=== PATIENT | female | born 1990 | race Caucasian/White ===

== ENCOUNTER → 2020-08-07 08:53 | Outpatient (BNVA) | payer OTHER, SELFPAY | PROVIDERS: PCP Internal Medicine; Visit Provider Advanced Practice Midwife ==

== ENCOUNTER 2020-08-09 15:19 | Outpatient (REF) | payer OTHER, SELFPAY ==
--- NOTE | 2020-08-09 15:27 | US_ITS ---
EXAMINATION: ULTRASOUND OF THE PELVIS CLINICAL INFORMATION: Abnormal uterine and vaginal bleeding.. COMPARISON: None. TECHNIQUE: Transabdominal and transvaginal pelvic ultrasound. A transvaginal study was performed in addition to the transabdominal study which did not yield an adequate examination of the uterus and ovaries due to superimposed distended gas-filled loops of bowel. FINDINGS: The uterus is normal in size and appearance, measuring 9.7 x 4.2 x 6 cm longitudinally, anteroposteriorly and transversely. The endometrial stripe thickness is prominent, measuring 1.5 cm in thickness. There are heterogeneous hypoechoic filling defects within the endometrial cavity. No Doppler vascularity. The endometrial cavity is expanded by 1.6 cm. No focal myometrial mass is seen. The ovaries bilaterally are visualized and appear normal, with the right ovary measuring 3.8 x 2.9 x 3 cm and the left ovary measuring 4.4 x 2.5 x 2 cm. Trace pelvic free fluid. US/US pelvic complete IMPRESSION: Heterogeneous filling defect within the endometrial cavity suggestive of blood clots. No uterine mass identified. Thickened appearance of the endometrium is nonspecific and can vary based on the phase of cycle.
--- NOTE | 2020-08-09 15:27 | US_ITS ---
EXAMINATION: ULTRASOUND OF THE PELVIS CLINICAL INFORMATION: Abnormal uterine and vaginal bleeding.. COMPARISON: None. TECHNIQUE: Transabdominal and transvaginal pelvic ultrasound. A transvaginal study was performed in addition to the transabdominal study which did not yield an adequate examination of the uterus and ovaries due to superimposed distended gas-filled loops of bowel. FINDINGS: The uterus is normal in size and appearance, measuring 9.7 x 4.2 x 6 cm longitudinally, anteroposteriorly and transversely. The endometrial stripe thickness is prominent, measuring 1.5 cm in thickness. There are heterogeneous hypoechoic filling defects within the endometrial cavity. No Doppler vascularity. The endometrial cavity is expanded by 1.6 cm. No focal myometrial mass is seen. The ovaries bilaterally are visualized and appear normal, with the right ovary measuring 3.8 x 2.9 x 3 cm and the left ovary measuring 4.4 x 2.5 x 2 cm. Trace pelvic free fluid. US/US transvaginal IMPRESSION: Heterogeneous filling defect within the endometrial cavity suggestive of blood clots. No uterine mass identified. Thickened appearance of the endometrium is nonspecific and can vary based on the phase of cycle.
== END 2020-08-09 15:20 | disposition home or self-care (01) ==
LOC: HO.US 15:19
PROVIDERS: Visit Provider Advanced Practice Midwife
DX: N93.9 Abnormal uterine and vaginal bleeding, unspecified (principal)
CPT/HCPCS: 76830; 76856

== ENCOUNTER → 2020-08-15 16:05 | Outpatient (BNVA) | payer OTHER, SELFPAY | PROVIDERS: PCP Internal Medicine; Visit Provider Advanced Practice Midwife ==

== ENCOUNTER 2020-08-16 14:04 | Outpatient (REF) | payer OTHER, SELFPAY ==
[2020-08-16 15:04] LABS: Hematocrit 33.1 % (37-47); Hemoglobin 10.5 g/dl (12.0-16.0); Mean Corpuscular HGB Conc 31.7 g/dl (31.0-35.0); Mean Corpuscular Hemoglobin 29.1 pg (27.0-33.0); Mean Corpuscular Volume 91.7 fL (80-98); Mean Platelet Volume 10.9 fL (9.4-12.3); Platelet Count 286 X10*3/uL (160-400); Red Blood Count 3.61 X10*6/uL (4.20-5.50); Red Cell Distribution Width 13.5 % (11.0-16.0); White Blood Count 6.5 X10*3/uL (4.8-10.8)
[2020-08-16 15:54] LABS: TSH reflex Free T4 1.46 uIU/mL (0.32-4.0)
== END 2020-08-16 14:05 | disposition home or self-care (01) ==
LOC: HO.LAB 14:04
PROVIDERS: PCP Internal Medicine; Visit Provider Advanced Practice Midwife
DX: N93.9 Abnormal uterine and vaginal bleeding, unspecified (principal)
CPT/HCPCS: 36415; 84443; 85027

== ENCOUNTER 2020-08-22 08:25 | Outpatient (REF) | payer OTHER, SELFPAY ==
[2020-08-23 12:47] LABS: C. trachomatis RNA TMA NOT DETECTED (NOT DETECTED); N. gonorrhoeae RNA TMA NOT DETECTED (NOT DETECTED)
== END 2020-08-22 08:26 | disposition home or self-care (01) ==
LOC: HO.LAB 08:25
PROVIDERS: Visit Provider Obstetrics & Gynecology
DX: N93.9 Abnormal uterine and vaginal bleeding, unspecified (principal); F41.8 Other specified anxiety disorders; J45.909 Unspecified asthma, uncomplicated; F17.210 Nicotine dependence, cigarettes, uncomplicated
CPT/HCPCS: 36415; 87491; 87591; 99212

== ENCOUNTER 2020-11-26 14:13 | Outpatient (REF) | payer OTHER, SELFPAY ==
[2020-11-26 15:20] LABS: Hematocrit 38.5 % (37-47); Hemoglobin 11.9 g/dl (12.0-16.0); Mean Corpuscular HGB Conc 30.9 g/dl (31.0-35.0); Mean Corpuscular Hemoglobin 25.5 pg (27.0-33.0); Mean Corpuscular Volume 82.4 fL (80-98); Mean Platelet Volume 10.7 fL (9.4-12.3); Platelet Count 287 X10*3/uL (160-400); Red Blood Count 4.67 X10*6/uL (4.20-5.50); Red Cell Distribution Width 18.5 % (11.0-16.0); White Blood Count 6.5 X10*3/uL (4.8-10.8)
[2020-11-27 05:47] LABS: CT PCR NOT DETECTED (Not Detect.); NG PCR NOT DETECTED (Not Detect.)
== END 2020-11-26 14:14 | disposition home or self-care (01) ==
LOC: HO.LAB 14:13
PROVIDERS: Visit Provider Obstetrics & Gynecology
DX: N93.9 Abnormal uterine and vaginal bleeding, unspecified (principal)
CPT/HCPCS: 85027; 87491; 87591; 99212

== ENCOUNTER 2022-05-21 11:45 | Emergency (ER) | payer OTHER, SELFPAY ==
--- NOTE | ~2022-05-21 | XR_ITS ---
EXAMINATION: XR CHEST CLINICAL INFORMATION: Cough COMPARISON: Previous chest x-ray December 2015 TECHNIQUE: Frontal view of the chest was obtained. FINDINGS: No significant abnormality is noted involving the heart, lungs, mediastinum, bony thorax or soft tissues. XR/XR chest 1V IMPRESSION: Unremarkable examination.
[2022-05-21 11:47] VITALS: BP 151/82; PULSE 97; RESP 20; TEMP 36.8; O2SAT 91; BMI 26.8
--- NOTE | 2022-05-21 11:55 | ED_ITS ---
HPI - URI/Sore Throat General Chief Complaint: Upper Respiratory Symptoms <SID Abrams - Last Filed: 05/26/22 15:25> Stated Complaint: Asthma Cough <SID Abrams - Last Filed: 05/26/22 15:25> Time Seen by Provider: 05/21/22 12:05 <SID Abrams - Last Filed: 05/26/22 15:25> History of Present Illness HPI Narrative: Patient complains of asthma which is temporary relieved with her pump but then comes right back and now she is coughing a lot which happens often when she has an asthma flare up she has no sputum no fever no chest pain No recent illness that she is aware of no runny nose no sore throat no body aches no fever <SID Zeng - Last Filed: 05/21/22 18:32> Related Data Home Medications: Home Medications Medication Instructions Recorded Confirmed lorazepam 2 mg/mL oral concentrate 0.25 mg PO BID PRN 08/22/20 08/22/20 paroxetine HCl 10 mg tablet (Paxil) 10 mg PO DAILY 08/22/20 08/22/20 zolpidem 10 mg tablet (Ambien) 10 mg PO BEDTIME PRN 08/22/20 08/22/20 Previous Rx's Medication Instructions Recorded ibuprofen 600 mg tablet 600 mg PO TID PRN menorrhagia 10 08/15/20 days #30 tabs ferrous sulfate 325 mg (65 mg 325 mg PO Q OTHER DAY #30 tabs 08/17/20 iron) tablet L norgest/E estradiol-E estrad 1 tab PO DAILY 84 days #84 ea 11/26/20 0.15 mg-30 mcg (84)/10 mcg(7) tabs,3mos (Seasonique) albuterol sulfate 2.5 mg/3 mL 2.5 mg (3 mL) inhalation Q4-6H PRN 05/21/22 (0.083 %) solution for nebulization shortness of breath or wheezing #75 mL codeine 10 mg-guaifenesin 100 mg/5 5 ml PO Q6H PRN cough #75 mL 05/21/22 mL oral liquid (Guaifenesin AC) prednisone 20 mg tablet 60 mg PO DAILY 5 days #15 tabs 05/21/22 <SID Abrams - Last Filed: 05/26/22 15:25> Allergies/Adverse Reactions: Allergies Allergy/AdvReac Type Severity Reaction Status Date / Time No Known Allergies Allergy Verified 05/21/22 11:50 <SID Abrams - Last Filed: 05/26/22 15:25> Review of Systems Review of Systems: Positive for shortness of breath and cough Negatives no fever no chills no dizziness no headache no stiff neck no chest pain no sputum no abdominal pain no nausea vomiting or diarrhea no skin rash no leg swelling no calf pain <SID Zeng - Last Filed: 05/21/22 18:32> Yes all other systems are reviewed and are negative <SID Zeng - Last Filed: 05/21/22 18:32> PMFSH Past Medical History Medical History: Medical History Anxiety Asthma Depression <SID Abrams - Last Filed: 05/26/22 15:25> Surgical History: Surgical History No history of previous surgery <SID Abrams - Last Filed: 05/26/22 15:25> Family History Family History: Family History Maternal Aunt Breast CA <SID Abrams - Last Filed: 05/26/22 15:25> Social History Social History: Social History Alcohol intake: current Alcohol intake frequency: holidays/special occasions only Cigarettes Per Day: 6 Advance Directives: No Gender identity: Female <SID Abrams - Last Filed: 05/26/22 15:25> Physical Exam Vital Signs: Vital Signs: Last Vital Signs Temp 98.2 F 05/21/22 11:47 Pulse 97 05/21/22 12:14 Resp 18 05/21/22 12:14 BP 151/82 H 05/21/22 11:47 Pulse Ox 91 L 05/21/22 11:47 O2 Del Method 05/21/22 11:47 BMI result Body Mass Index 26.8 <SID Abrams - Last Filed: 05/26/22 15:25> Vital Signs: Last Vital Signs Temp 98.2 F 05/21/22 11:47 Pulse 97 05/21/22 12:14 Resp 18 05/21/22 12:14 BP 151/82 H 05/21/22 11:47 Pulse Ox 91 L 05/21/22 11:47 O2 Del Method 05/21/22 11:47 BMI result Body Mass Index 26.8 <SID Zeng - Last Filed: 05/21/22 18:32> General appearance is no acute distress, but coughing a lot The eyes no redness no discharge The pharynx is clear without redness swelling or exudate Neck is supple Chest is clear to auscultation with full symmetric equal breath sounds, this was after the patient had received a nebulizer treatment ordered in triage, at this time there is no wheezing, no prolonged expiration no adventitious sounds Heart no murmur Abdomen soft nontender Extremities no edema no calf tenderness or swelling Skin no rash <SID Zeng - Last Filed: 05/21/22 18:32> Course Course Course Narrative: Patient O2 saturation 91% on room air. Patient lungs are tight. Patient sent to [facility] immediately for asthma exacerbation. Chest x-ray and covid swab ordered. albuterol and prednisone ordered <SID Abrams - Last Filed: 05/26/22 15:25> Patient O2 saturation 91% on room air. Patient lungs are tight. Patient sent to [facility] immediately for asthma exacerbation. Chest x-ray and covid swab ordered. albuterol and prednisone ordered This patient was treated with a nebulizer before I saw her when I saw her her lungs were now clear but she was still coughing a lot She was given a tbsp of codeine cough syrup, which was helpful to her in about 10-15 minutes later her cough was under control, I did re-evaluate her her lungs were clear her O2 sat was 98% she was breathing at 16 times a minute and felt much better with out the frequent cough Chest x-ray was negative, COVID test was negative and patient was discharged on steroids and refill of her albuterol, she was comfortable speaking full s entences with no shortness of breath <SID Zeng - Last Filed: 05/21/22 18:32> Medications Administered Discontinued Medications Generic Name Dose Route Start Last Admin Trade Name Julio C PRN Reason Stop Dose Admin Albuterol/Ipratropium 3 ml 05/21/22 11:54 05/21/22 12:13 Albuterol/Iprat 2.5/0.5mg 3 Ml Ampul.Neb INHALE 05/21/22 11:55 3 ml ONCE ONE Administration Guaifenesin/Codeine Phosphate 5 ml 05/21/22 12:23 05/21/22 12:29 Guaifen/Codeine Sf 200/20/10ml 10 Ml Liquid PO 05/21/22 12:24 5 ml ONCE ONE Administration Prednisone 60 mg 05/21/22 11:54 05/21/22 12:25 Prednisone 20 Mg Tablet PO 05/21/22 11:55 60 mg ONCE ONE Administration <SID Abrams - Last Filed: 05/26/22 15:25> Medications Administered Discontinued Medications Generic Name Dose Route Start Last Admin Trade Name Julio C PRN Reason Stop Dose Admin Albuterol/Ipratropium 3 ml 05/21/22 11:54 05/21/22 12:13 Albuterol/Iprat 2.5/0.5mg 3 Ml Ampul.Neb INHALE 05/21/22 11:55 3 ml ONCE ONE Administration Guaifenesin/Codeine Phosphate 5 ml 05/21/22 12:23 05/21/22 12:29 Guaifen/Codeine Sf 200/20/10ml 10 Ml Liquid PO 05/21/22 12:24 5 ml ONCE ONE Administration Prednisone 60 mg 05/21/22 11:54 05/21/22 12:25 Prednisone 20 Mg Tablet PO 05/21/22 11:55 60 mg ONCE ONE Administration <SID Zeng - Last Filed: 05/21/22 18:32> MDM - URI/Sore Throat Lab Data Labs: Lab Results 05/21/22 Range/Units 11:54 COVID-19 ([facility]) Negative (Negative) COVID-19 Clin Com See Note <SID Abrams - Last Filed: 05/26/22 15:25> Lab Results 05/21/22 Range/Units 11:54 COVID-19 ([facility]) Negative (Negative) COVID-19 Clin Com See Note <SID Zeng - Last Filed: 05/21/22 18:32> Discharge Plan Discharge Clinical Impression: Asthma <SID Abrams - Last Filed: 05/26/22 15:25> Patient Disposition: Home, Self-Care <SID Abrams - Last Filed: 05/26/22 15:25> Additional Instructions: Chest x-ray was negative and COVID test was normal You lungs did clear with an asthma treatment Use steroids and albuterol as needed, return any time if worse <SID Abrams - Last Filed: 05/26/22 15:25> Prescriptions: New codeine-guaifenesin [Guaifenesin AC] 10-100 mg/5 mL liquid 5 ml PO Q6H PRN (Reason: cough) Qty: 75 0RF Rx Instructions: Narcotic, may cause drowsiness so no driving for 6 hours after taking albuterol sulfate 2.5 mg /3 mL (0.083 %) solution for nebulization 2.5 mg inhalation Q4-6H PRN (Reason: shortness of breath or wheezing) Qty: 75 0RF prednisone 20 mg tablet 60 mg PO DAILY 5 Days Qty: 15 0RF No Action ferrous sulfate 325 mg (65 mg iron) tablet 325 mg PO Q OTHER DAY Qty: 30 1RF Rx Instructions: Take iron tab every other day (--). ibuprofen 600 mg tablet 600 mg PO TID PRN (Reason: menorrhagia) 10 Days Qty: 30 0RF paroxetine HCl [Paxil] 10 mg tablet 10 mg PO DAILY zolpidem [Ambien] 10 mg tablet 10 mg PO BEDTIME PRN lorazepam 2 mg/mL concentrate 0.25 mg PO BID PRN L norgest/e.estradiol-e.estrad [Seasonique] 0.15 mg-30 mcg (84)/10 mcg (7) tablets,dose pack,3 month 1 tab PO DAILY 84 Days Qty: 84 3RF <SID Abrams - Last Filed: 05/26/22 15:25> Interventions: ED Discharge Assessment Last Done: 05/21/22 14:00 <SID Abrams - Last Filed: 05/26/22 15:25> Discharge Date/Time: 05/21/22 14:01 <SID Abrams - Last Filed: 05/26/22 15:25>
[2022-05-21 12:13] LABS: COVID-19 Test Negative (Negative)
[2022-05-21] MEDS: Albuterol/Iprat 2.5/0.5MG 3 ML AMPUL.NEB INHALE (12:13)
[2022-05-21 12:14] VITALS: PULSE 97; RESP 18; O2SAT 92
[2022-05-21] MEDS: predniSONE 20 MG TABLET 60 MG PO (12:25)
[2022-05-21] MEDS: guaiFEN/Codeine SF 200/20/10ML 10 ML LIQUID 5 ML PO (12:29)
== END 2022-05-21 14:01 | disposition home or self-care (01) ==
PROVIDERS: Emergency Provider Emergency Medicine; PCP Internal Medicine
DX: J45.909 Unspecified asthma, uncomplicated (principal); R05.9 Cough, unspecified; F17.210 Nicotine dependence, cigarettes, uncomplicated; Z20.822 Contact with and (suspected) exposure to COVID-19; Z79.899 Other long term (current) drug therapy; Z71.6 Tobacco abuse counseling
CPT/HCPCS: 71045; 87635; 94640; 99284

== ENCOUNTER 2022-06-11 07:52 | Emergency (ER) | payer OTHER, SELFPAY ==
--- NOTE | ~2022-06-11 | XR_ITS ---
EXAMINATION: XR CHEST CLINICAL INFORMATION: Chest wall pain COMPARISON: 05/21/2022 TECHNIQUE: Frontal view of the chest was obtained. FINDINGS: There is no acute finding. No infiltrate. No effusion. The cardiac silhouette is within normal limits. The hilar structures do not appear pathologically enlarged. Mild elevation left hemidiaphragm. XR/XR chest 1V IMPRESSION: No acute finding
--- NOTE | ~2022-06-11 | CT_ITS ---
EXAMINATION: CT ANGIOGRAM OF THE CHEST WITH AND WITHOUT CONTRAST (CT PULMONARY ANGIOGRAM FOR PE) CLINICAL INFORMATION: Reason for Exam Elevated D-dimer. SOB/CP COMPARISON: Previous chest x-ray from earlier the same day TECHNIQUE: Prior to contrast administration, noncontrast localization images were obtained. Subsequently, multidetector volumetric imaging was performed from the thoracic inlet to below the diaphragms following the administration of 65 mL Omnipaque 350 intravenous contrast. No contrast reaction reported Sagittal, coronal, and MIP oblique sagittal reformatted images were obtained on the CT workstation, uploaded to PACS, and reviewed. This CT examination was performed using dose optimization techniques as appropriate, variously including the following: *Automated exposure control *Adjustment of mA and/or kV according to patient size (this includes techniques or standardized protocols for targeted exams where dose is matched to indication/reason for exam; i.e. extremities or head) *Use of iterative reconstruction technique Total exam dose-length product 283 mGy-cm FINDINGS: QUALITY OF STUDY/CONTRAST BOLUS: Satisfactory. PULMONARY ARTERIES: No central or segmental pulmonary emboli. THORACIC AORTA: No aneurysm or dissection. LUNG: No focal consolidation, nodules or masses. PLEURA: No pleural effusion or pneumothorax. MEDIASTINUM: Normal heart size. No pericardial effusion. No hilar or mediastinal lymphadenopathy. No evidence of septal bowing or right heart strain. CHEST WALL/AXILLA: No axillary or internal mammary lymphadenopathy. OSSEOUS STRUCTURES: Nondisplaced left lateral sixth rib fracture. UPPER ABDOMEN: Unremarkable. No reflux of contrast into the hepatic veins to suggest elevated right heart pressures. CT/CT angio chest PE protocol IMPRESSION: Nondisplaced left lateral sixth rib fracture. No evidence of pulmonary embolism. VTE: negative
--- NOTE | 2022-06-11 08:01 | ECG_ITS ---
Test Reason : Upper Respiratory Symptoms Blood Pressure : / mmHG Vent. Rate : 091 BPM Atrial Rate : 091 BPM P-R Int : 136 ms QRS Dur : 082 ms QT Int : 338 ms P-R-T Axes : 055 023 029 degrees QTc Int : 415 ms Normal sinus rhythm Normal ECG No previous ECGs available Referred By: Generic ED Physician Electronically Signed By:MIKE UGALDE MD
[2022-06-11 08:04] VITALS: BP 125/77; PULSE 95; RESP 18; TEMP 36.5; O2SAT 98; BMI 26.6
--- NOTE | 2022-06-11 08:10 | PC.NURSE ---
lungs - pt states that it hurts too much to take a deep breath.
[2022-06-11 08:33] LABS: MANUAL DIFF FLAG NO
[2022-06-11 08:37] LABS: Basophils Absolute Auto 0.1 X10*3/uL (0.0-0.2); Basophils Percent Auto 0.5 % (0-2); Eosinophils Absolute Auto 0.2 X10*3/uL (0.0-0.4); Hematocrit 42.4 % (37.0-47.0); Hemoglobin 13.7 g/dl (12.0-16.0); Imm Gran Abs Auto 0.03 X10*3/uL (0.00-0.03); Imm Gran Pct Auto 0.3 % (0.0-0.4); Lymphocytes Absolute Auto 2.1 X10*3/uL (1.2-4.9); Lymphocytes Percent Auto 21.5 % (20-40); Mean Corpuscular HGB Conc 32.3 g/dl (31.0-35.0); Mean Corpuscular Hemoglobin 28.1 pg (27.0-33.0); Mean Corpuscular Volume 86.9 fL (80.0-98.0); Mean Platelet Volume 10.8 fL (9.4-12.3); Monocytes Absolute Auto 0.7 X10*3/uL (0.1-1.2); Monocytes Percent Auto 7.4 % (2-11); Neutrophils Absolute Auto 6.7 x10*3/uL (2.0-8.3); Neutrophils Percent Auto 68.3 % (45-73); Platelet Count 260 X10*3/uL (160-400); Red Blood Count 4.88 X10*6/uL (4.20-5.50); Red Cell Distribution Width 13.4 % (11.0-16.0); White Blood Count 9.8 X10*3/uL (4.8-10.8)
[2022-06-11 08:52] LABS: Anion Gap 13 (12-20); Blood Urea Nitrogen 12 mg/dL (9-16); Calcium 9.6 mg/dL (8.4-10.2); Carbon Dioxide 24 mmol/L (22-29); Chloride 107 mmol/L (96-108); Creatinine Clr Calc Pharmacy 100.1; Estimated Glomerular Filt Rate > 60; Glucose Random 92 mg/dL (60-115); Potassium 4.5 mmol/L (3.3-5.1); Sodium 139 mmol/L (135-145)
[2022-06-11 09:00] LABS: Troponin-I High Sensitivity 11.3 ng/L (<3.5-17.0)
[2022-06-11 09:07] LABS: IDNOW Serial# 16C4AD1C; Influenza A Positive (Negative); Influenza B2 Negative (Negative)
[2022-06-11 09:08] LABS: COVID-19 Test Negative (Negative); IDNOW Serial# BCCEAD1C
--- NOTE | 2022-06-11 09:13 | ED_ITS ---
HPI - URI/Sore Throat General Chief Complaint: Upper Respiratory Symptoms Stated Complaint: CP, asthma Time Seen by Provider: 06/11/22 09:12 Source: patient Mode of arrival: ambulatory History of Present Illness HPI Narrative: 32-year-old female with a past medical history of anxiety, asthma, depression, presenting to the ED complaining of left-sided chest wall pain x3 days with associated dry cough, SOB, nasal congestion, sneezing. Was seen at [facility] last week given naproxen without relief. Reports pain worse with breathing, movement, palpation. Denies fever, sore throat, abdominal pain/vomiting, pedal edema, recent travel, history of clots. Denies fall injury or trauma MD elicited complaint: cough Onset (ago): day(s) Related Data Home Medications Medication Instructions Recorded Confirmed lorazepam 2 mg/mL oral concentrate 0.25 mg PO BID PRN 08/22/20 08/22/20 paroxetine HCl 10 mg tablet (Paxil) 10 mg PO DAILY 08/22/20 08/22/20 zolpidem 10 mg tablet (Ambien) 10 mg PO BEDTIME PRN 08/22/20 08/22/20 Previous Rx's Medication Instructions Recorded ibuprofen 600 mg tablet 600 mg PO TID PRN menorrhagia 10 08/15/20 days #30 tabs ferrous sulfate 325 mg (65 mg 325 mg PO Q OTHER DAY #30 tabs 08/17/20 iron) tablet L norgest/E estradiol-E estrad 1 tab PO DAILY 84 days #84 ea 11/26/20 0.15 mg-30 mcg (84)/10 mcg(7) tabs,3mos (Seasonique) albuterol sulfate 2.5 mg/3 mL 2.5 mg (3 mL) inhalation Q4-6H PRN 05/21/22 (0.083 %) solution for nebulization shortness of breath or wheezing #75 mL codeine 10 mg-guaifenesin 100 mg/5 5 ml PO Q6H PRN cough #75 mL 05/21/22 mL oral liquid (Guaifenesin AC) prednisone 20 mg tablet 60 mg PO DAILY 5 days #15 tabs 05/21/22 acetaminophen 500 mg tablet 500 mg PO Q6H PRN fever or pain 06/11/22 (Tylenol Extra Strength) #14 tabs lidocaine 5 % topical patch 1 patch topical DAILY PRN pain #30 06/11/22 (Lidoderm) ea Allergies Allergy/AdvReac Type Severity Reaction Status Date / Time No Known Allergies Allergy Verified 05/21/22 11:50 Review of Systems Review of Systems: Constitutional: No Fever, No Chills, No Fatigue, No Malaise ENT/Mouth: No Hearing loss, No Ear Pain, + Nasal Congestion, No Sinus Pain, No Hoarseness, No sore throat, + Rhinorrhea, No Swallowing Difficulty Eyes: No Eye Pain, No Swelling, No Redness, No Foreign Body, No Discharge, No Vision Changes Cardiovascular: + Chest Pain, + SOB, No Dyspnea on Exertion, No Orthopnea, No Edema, No Palpitations Respiratory: + Cough, No Sputum, No Wheezing, No Dyspnea Gastrointestinal: No Nausea, No Vomiting, No Diarrhea, No Constipation, No Abdominal pain Genitourinary: No Dysuria, No Urinary Frequency, No Hematuria, No Urinary Incontinence/retention, No Flank Pain Musculoskeletal: No joint pain, No Myalgias, No Joint Swelling Skin: No Skin Lesions, No rash Neuro: No Weakness, No Loss of Consciousness, No Dizziness, No Headache Yes all other systems are reviewed and are negative Constitutional: Constitutional: Reports as per [facility] Past Medical History Attestation statement: The following information was validated with the patient. Medical History Anxiety Asthma Depression Surgical History No history of previous surgery Family History Family History Maternal Aunt Breast CA Social History Social History Alcohol intake: current Alcohol intake frequency: holidays/special occasions only Cigarettes Per Day: 6 Advance Directives: No Advance Directives Information Provided: No Gender identity: Female Physical Exam Vital Signs: Vital Signs: Last Vital Signs Temp 97.8 F 06/11/22 11:46 Pulse 67 06/11/22 11:46 Resp 14 06/11/22 11:57 BP 134/84 06/11/22 11:46 Pulse Ox 97 06/11/22 11:46 O2 Del Method 06/11/22 11:46 BMI result Body Mass Index 26.6 Const: Other: in pain General: cooperative and no acute distress Orientation/consciousness: patient oriented x3 Limitations: no limitations HEENT: Head: Yes normal to inspection and Yes atraumatic Ears: hearing grossly normal bilaterally General nose exam: Normal external nose present Face and sinus: Yes normal facial exam Eyes: General: appearance normal, both eyes and all related structures EOM: EOMs intact bilaterally Neck: Neck: Yes normal visual inspection and Yes no meningeal signs Chest: Chest palpation & inspection: normal inspection of the chest, no crepitus and tenderness (Left anterior lateral chest wall) Resp: Effort & Inspection: normal respiratory effort and no respiratory distress Auscultation: clear to auscultation bilaterally and diminished lung sounds (shallow) Cardio: Rate: regular rate Heart sounds: S1 normal heart sound present and S2 normal heart sound present GI: Inspection: Yes normal to inspection Palpation (GI): Soft to palpation, nontender, no guarding and not rigid : General: Yes no CVA tenderness Back/Spine/Pelvis: Back: no CVA tenderness Skin: Rashes: no rashes Wounds: no wounds Neuro: General: patient oriented x3, tone normal and no meningeal signs Gait exam (Neuro): Normal gait present Extrem: General: Yes normal to inspection, Yes no pedal edema and Yes no calf tenderness Course Course Course Narrative: -influenza A positive -no leukocytosis. Initial troponin 11.3 > will obtain 3 hour repeat. CXR unremarkable -D-dimer mildly elevated > will obtain CTA to rule out PE -1253--repeat troponin without rise, mi unlikely CT angio chest PE protocol IMPRESSION: Nondisplaced left lateral sixth rib fracture. No evidence of pulmonary embolism. ? VTE: negative > Results discussed with patient including worrisome signs and symptoms and strict return precautions, and when to return to the emergency department. They verbalized understanding and feel safe for discharge at this time. Medications Administered Discontinued Medications Generic Name Dose Route Start Last Admin Trade Name Julio C PRN Reason Stop Dose Admin Aspirin 324 mg 06/11/22 09:39 06/11/22 09:46 Aspirin 81 Mg Tab.Chew PO 06/11/22 09:40 324 mg ONCE ONE Administration Iohexol 100 ml 06/11/22 12:00 06/11/22 12:01 Iohexol 350 Mg/Ml 100 Ml Infus..Btl IV 06/11/22 12:01 65 ml ONCE ONE Administration Ketorolac Tromethamine 15 mg 06/11/22 09:22 06/11/22 09:47 Ketorolac Tromethamine 15 Mg/Ml Vial IVPUSH 06/11/22 09:23 15 mg ONCE ONE Administration Morphine Sulfate 2 mg 06/11/22 11:50 06/11/22 11:57 Morphine Sulfate 2 Mg/Ml Cartridge IVPUSH 06/11/22 11:51 2 mg ONCE ONE Administration Protocol MDM - URI/Sore Throat MDM Narrative Medical decision making narrative: 32-year-old female with a past medical history of anxiety, asthma, depression, presenting to the ED complaining of left-sided chest wall pain x3 days with associated dry cough, SOB, nasal congestion, sneezing. On exam mildly tachyca rdic likely from pain, lungs with shallow breath sounds, reproducible chest pain on exam without crepitus or evidence of flail chest/trauma. Abdomen soft/nontender, no pedal edema/calf tenderness. Concern for pneumonia vs bronchitis/costochondritis vs viral syndrome vs ACS/PE Plan: EKG, labs, CXR, COVID 19/influenza testing, IV Toradol, re-evaluate Differential Diagnosis Differential diagnosis: Likely upper respiratory infection, sinusitis, viral infection, bronchitis and influenza Medical Records Attestation: I reviewed the patient's medical records. Lab Data Attestation: I reviewed the patient's lab results. Result diagrams: 06/11/22 08:28 06/11/22 08:28 Labs: Lab Results 06/11/22 06/11/22 06/11/22 Range/Units 08:28 08:28 08:28 WBC 9.8 (4.8-10.8) X10*3/uL RBC 4.88 (4.20-5.50) X10*6/uL Hgb 13.7 (12.0-16.0) g/dl Hct 42.4 (37.0-47.0) % MCV 86.9 (80.0-98.0) fL MCH 28.1 (27.0-33.0) pg MCHC 32.3 (31.0-35.0) g/dl RDW 13.4 (11.0-16.0) % Plt Count 260 (160-400) X10*3/uL MPV 10.8 (9.4-12.3) fL Immature Gran % (Auto) 0.3 (0.0-0.4) % Neut % (Auto) 68.3 (45-73) % Lymph % (Auto) 21.5 (20-40) % [place] % (Auto) 7.4 (2-11) % Eos % (Auto) 2.0 (0-4) % Baso % (Auto) 0.5 (0-2) % Lymph # (Auto) 2.1 (1.2-4.9) X10*3/uL [place] # (Auto) 0.7 (0.1-1.2) X10*3/uL Eos # (Auto) 0.2 (0.0-0.4) X10*3/uL Baso # (Auto) 0.1 (0.0-0.2) X10*3/uL Abs Immat Gran (auto) 0.03 (0.00-0.03) X10*3/uL Absolute Neuts (auto) 6.7 (2.0-8.3) x10*3/uL Absolute Nucleated RBC 0.000 (0.0-0.012) X10*3/uL Nucleated RBC % (auto) 0.0 (0.0-0.2) /100WBC PT (10.0-13.1) SEC INR (0.9-1.1) D-Dimer High Sensitivty NG/ML Sodium 139 (135-145) mmol/L Potassium 4.5 (3.3-5.1) mmol/L Chloride 107 (96-108) mmol/L Carbon Dioxide 24 (22-29) mmol/L Anion Gap 13 (12-20) BUN 12 (9-16) mg/dL Creatinine 0.79 (0.5-1.4) mg/dL Estim Creat Clear Calc 100.1 Estimated GFR > 60 Random Glucose 92 (60-115) mg/dL Calcium 9.6 (8.4-10.2) mg/dL Total Bilirubin (0.0-1.0) mg/dL Direct Bilirubin (0.0-0.5) mg/dL AST (5-31) U/L ALT (0-31) U/L Alkaline Phosphatase (39-117) U/L Troponin I High Sens 11.3 (<3.5-17.0) ng/L B-Natriuretic Peptide (<100) pg/mL Total Protein (6.5-8.0) g/dL Albumin (3.5-5.0) g/dL Lipase (8-78) U/L COVID-19 (BECKA) (Negative) COVID-19 Clin Com Influenza Type A (GINA) (Negative) Influenza Type B (GINA) (Negative) Influenza A & B Note 06/11/22 06/11/22 06/11/22 Range/Units 08:35 08:35 09:36 WBC (4.8-10.8) X10*3/uL RBC (4.20-5.50) X10*6/uL Hgb (12.0-16.0) g/dl Hct (37.0-47.0) % MCV (80.0-98.0) fL MCH (27.0-33.0) pg MCHC (31.0-35.0) g/dl RDW (11.0-16.0) % Plt Count (160-400) X10*3/uL MPV (9.4-12.3) fL Immature Gran % (Auto) (0.0-0.4) % Neut % (Auto) (45-73) % Lymph % (Auto) (20-40) % [place] % (Auto) (2-11) % Eos % (Auto) (0-4) % Baso % (Auto) (0-2) % Lymph # (Auto) (1.2-4.9) X10*3/uL [place] # (Auto) (0.1-1.2) X10*3/uL Eos # (Auto) (0.0-0.4) X10*3/uL Baso # (Auto) (0.0-0.2) X10*3/uL Abs Immat Gran (auto) (0.00-0.03) X10*3/uL Absolute Neuts (auto) (2.0-8.3) x10*3/uL Absolute Nucleated RBC (0.0-0.012) X10*3/uL Nucleated RBC % (auto) (0.0-0.2) /100WBC PT 10.9 (10.0-13.1) SEC INR 1.0 (0.9-1.1) D-Dimer High Sensitivty 279 NG/ML Sodium (135-145) mmol/L Potassium (3.3-5.1) mmol/L Chloride (96-108) mmol/L Carbon Dioxide (22-29) mmol/L Anion Gap (12-20) BUN (9-16) mg/dL Creatinine (0.5-1.4) mg/dL Estim Creat Clear Calc Estimated GFR Random Glucose (60-115) mg/dL Calcium (8.4-10.2) mg/dL Total Bilirubin (0.0-1.0) mg/dL Direct Bilirubin (0.0-0.5) mg/dL AST (5-31) U/L ALT (0-31) U/L Alkaline Phosphatase (39-117) U/L Troponin I High Sens (<3.5-17.0) ng/L B-Natriuretic Peptide (<100) pg/mL Total Protein (6.5-8.0) g/dL Albumin (3.5-5.0) g/dL Lipase (8-78) U/L COVID-19 (BECKA) Negative (Negative) COVID-19 Clin Com See Note Influenza Type A (GINA) Positive A (Negative) Influenza Type B (GINA) Negative (Negative) Influenza A & B Note See Note 06/11/22 06/11/22 06/11/22 Range/Units 09:36 09:36 11:49 WBC (4.8-10.8) X10*3/uL RBC (4.20-5.50) X10*6/uL Hgb (12.0-16.0) g/dl Hct (37.0-47.0) % MCV (80.0-98.0) fL MCH (27.0-33.0) pg MCHC (31.0-35.0) g/dl RDW (11.0-16.0) % Plt Count (160-400) X10*3/uL MPV (9.4-12.3) fL Immature Gran % (Auto) (0.0-0.4) % Neut % (Auto) (45-73) % Lymph % (Auto) (20-40) % [place] % (Auto) (2-11) % Eos % (Auto) (0-4) % Baso % (Auto) (0-2) % Lymph # (Auto) (1.2-4.9) X10*3/uL [place] # (Auto) (0.1-1.2) X10*3/uL Eos # (Auto) (0.0-0.4) X10*3/uL Baso # (Auto) (0.0-0.2) X10*3/uL Abs Immat Gran (auto) (0.00-0.03) X10*3/uL Absolute Neuts (auto) (2.0-8.3) x10*3/uL Absolute Nucleated RBC (0.0-0.012) X10*3/uL Nucleated RBC % (auto) (0.0-0.2) /100WBC PT (10.0-13.1) SEC INR (0.9-1.1) D-Dimer High Sensitivty NG/ML Sodium (135-145) mmol/L Potassium (3.3-5.1) mmol/L Chloride (96-108) mmol/L Carbon Dioxide (22-29) mmol/L Anion Gap (12-20) BUN (9-16) mg/dL Creatinine (0.5-1.4) mg/dL Estim Creat Clear Calc Estimated GFR Random Glucose (60-115) mg/dL Calcium (8.4-10.2) mg/dL Total Bilirubin 0.3 (0.0-1.0) mg/dL Direct Bilirubin 0.2 (0.0-0.5) mg/dL AST 22 (5-31) U/L ALT 20 (0-31) U/L Alkaline Phosphatase 58 (39-117) U/L Troponin I High Sens 9.7 (<3.5-17.0) ng/L B-Natriuretic Peptide 20 (<100) pg/mL Total Protein 6.7 (6.5-8.0) g/dL Albumin 4.0 (3.5-5.0) g/dL Lipase 18 (8-78) U/L COVID-19 (BECKA) (Negative) COVID-19 Clin Com Influenza Type A (GINA) (Negative) Influenza Type B (GINA) (Negative) Influenza A & B Note ECG Data Attestation: I personally reviewed and interpreted this ECG as follows: ECG interpretation date: 06/11/22 ECG interpretation time: 08:16 Interpretation: EKG normal sinus rhythm with a rate of 91. VA interval 136. QTC 415. No STEMI Discharge Plan Discharge Clinical Impression: Fracture of rib, Influenza A Patient Disposition: Home, Self-Care Instructions: Rib Fracture (ED), Influenza (ED) Additional Instructions: Your blood work was reassuring. You do have influenza A. Cover your mouth, wash your hands, take Tylenol and Motrin as needed You also have a nondisplaced left 6th rib fracture. Use incentive spirometer at home Apply Lidoderm patches as needed, rest, apply heat or ice Please have close follow-up with her doctor If symptoms persist or worsen return to the emergency department Prescriptions: New acetaminophen [Tylenol Extra Strength] 500 mg tablet 500 mg PO Q6H PRN (Reason: fever or pain) Qty: 14 0RF lidocaine [Lidoderm] 5 % adhesive patch,medicated 1 patch topical DAILY MDD remove after 12 hours PRN (Reason: pain) Qty: 30 0RF Rx Instructions: leave on most painful area for up to 12 hrs No Action ferrous sulfate 325 mg (65 mg iron) tablet 325 mg PO Q OTHER DAY Qty: 30 1RF Rx Instructions: Take iron tab every other day (--). codeine-guaifenesin [Guaifenesin AC] 10-100 mg/5 mL liquid 5 ml PO Q6H PRN (Reason: cough) Qty: 75 0RF Rx Instructions: Narcotic, may cause drowsiness so no driving for 6 hours after taking albuterol sulfate 2.5 mg /3 mL (0.083 %) solution for nebulization 2.5 mg inhalation Q4-6H PRN (Reason: shortness of breath or wheezing) Qty: 75 0RF prednisone 20 mg tablet 60 mg PO DAILY 5 Days Qty: 15 0RF ibuprofen 600 mg tablet 600 mg PO TID PRN (Reason: menorrhagia) 10 Days Qty: 30 0RF paroxetine HCl [Paxil] 10 mg tablet 10 mg PO DAILY zolpidem [Ambien] 10 mg tablet 10 mg PO BEDTIME PRN lorazepam 2 mg/mL concentrate 0.25 mg PO BID PRN L norgest/e.estradiol-e.estrad [Seasonique] 0.15 mg-30 mcg (84)/10 mcg (7) tablets,dose pack,3 month 1 tab PO DAILY 84 Days Qty: 84 3RF Referrals: Monik Mueller MD [Primary Care Provider] -
[2022-06-11] MEDS: Aspirin 81 MG TAB.CHEW 324 MG PO (09:46)
[2022-06-11 09:47] LABS: Prothrombin Time 10.9 SEC (10.0-13.1)
[2022-06-11] MEDS: Ketorolac Tromethamine 15 MG/ML VIAL IVPUSH (09:47)
[2022-06-11 09:49] LABS: D Dimer High Sensitivity 279 NG/ML
[2022-06-11 10:13] LABS: Alanine Aminotransferase 20 U/L (0-31); Alkaline Phosphatase 58 U/L (39-117); Aspartate Amino Transferase 22 U/L (5-31); Bilirubin Direct 0.2 mg/dL (0.0-0.5); Bilirubin Total 0.3 mg/dL (0.0-1.0); Lipase 18 U/L (8-78); Total Protein 6.7 g/dL (6.5-8.0)
[2022-06-11 10:19] LABS: B Type Natriuretic Peptide 20 pg/mL (<100)
[2022-06-11 11:46] VITALS: BP 134/84; PULSE 67; RESP 19; TEMP 36.6; O2SAT 97
[2022-06-11 11:57] VITALS: RESP 14
[2022-06-11] MEDS: Morphine Sulfate 2 MG/ML CARTRIDGE IVPUSH (11:57)
[2022-06-11] MEDS: iohexoL 350 MG/ML 100 ML INFUS..BTL IV (12:01)
[2022-06-11 12:17] LABS: Troponin-I High Sensitivity 9.7 ng/L (<3.5-17.0)
[2022-06-11 13:24] VITALS: BP 134/84; PULSE 69; RESP 15; O2SAT 97
== END 2022-06-11 13:45 | disposition home or self-care (01) ==
PROVIDERS: Physician Assistant; Emergency Provider Student in an Organized Health Care Education/Training Program; PCP Internal Medicine
DX: J11.1 Influenza due to unidentified influenza virus with other respiratory manifestations (principal); R06.02 Shortness of breath; S22.32XA Fracture of one rib, left side, initial encounter for closed fracture; X50.9XXA Other and unspecified overexertion or strenuous movements or postures, initial encounter; Y93.9 Activity, unspecified; Y92.9 Unspecified place or not applicable; Y99.9 Unspecified external cause status
CPT/HCPCS: 36415; 71045; 71275; 80048; 80076; 83690; 83880; 84484; 85025; 85379; 85610; 87502; 87635; 93005; 94010; 96374; 96375; 99284; J1885; J2270; Q9967

== ENCOUNTER 2023-12-15 08:00 | Outpatient (RCR) | payer OTHER, SELFPAY | END 2024-01-05 15:11 | disposition home or self-care (01) | LOC: HO.PT 08:00 | PROVIDERS: PCP Internal Medicine; Visit Provider Neurological Surgery | DX: R26.81 Unsteadiness on feet (principal); Z98.890 Other specified postprocedural states | CPT/HCPCS: 97110; 97163; 97530 ==

== ENCOUNTER 2024-05-16 15:56 | Emergency (ER) | payer OTHER, SELFPAY ==
--- NOTE | ~2024-05-16 | XR_ITS ---
EXAMINATION: XR HAND/WRIST, RIGHT CLINICAL INFORMATION: Right index finger laceration COMPARISON: None available. TECHNIQUE: PA, lateral, and oblique views of the right hand and wrist. FINDINGS: No acute fracture or dislocation. Well-corticated densities along the dorsal aspect of the second metacarpal head and base of the first metacarpophalangeal joint may reflect sesamoid bones versus retained foreign bodies. XR/XR hand wrist RT IMPRESSION: * No acute fracture or dislocation. * Well-corticated densities along the dorsal aspect of the second metacarpal head and base of the first metacarpophalangeal joint may reflect sesamoid bones versus retained foreign bodies. Electronically signed by: Debbi Hernandez MD 05/16/2024 05:51 PM JONO EVANS
[2024-05-16 15:59] VITALS: BP 129/73; PULSE 89; RESP 20; TEMP 36.3; O2SAT 96; BMI 26.0
--- NOTE | 2024-05-16 16:03 | ED_ITS ---
HPI - General Adult General Chief complaint: Skin/Abscess/Foreign Body Stated complaint: Lac L Hand 05/16/24 Time Seen by Provider: 05/16/24 18:49 Source: patient Mode of arrival: ambulatory Limitations: no limitations History of Present Illness ED Provider: Dr. Maria A Oleary HPI narrative: Patient comes to the emergency room complaining a skin laceration to the dorsum of the right hand. Patient states that she was washing dishes, a glass broke and she got a laceration/flap. Denies any other injuries. Patient is unaware when she got her last tetanus shot Related Data Home Medications ?Medication ?Instructions ?Recorded ?Confirmed lorazepam 2 mg/mL oral concentrate 0.25 mg PO BID PRN 08/22/20 08/22/20 paroxetine HCl 10 mg tablet (Paxil) 10 mg PO DAILY 08/22/20 08/22/20 zolpidem 10 mg tablet (Ambien) 10 mg PO BEDTIME PRN 08/22/20 08/22/20 Previous Rx's ?Medication ?Instructions ?Recorded ibuprofen 600 mg tablet 600 mg PO TID PRN menorrhagia 10 08/15/20 days #30 tabs ferrous sulfate 325 mg (65 mg 325 mg PO Q OTHER DAY #30 tabs 08/17/20 iron) tablet L norgest/E estradiol-E estrad 1 tab PO DAILY 84 days #84 ea 11/26/20 0.15 mg-30 mcg (84)/10 mcg(7) tabs,3mos (Seasonique) albuterol sulfate 2.5 mg/3 mL 2.5 mg (3 mL) inhalation Q4-6H PRN 05/21/22 (0.083 %) solution for nebulization shortness of breath or wheezing #75 mL codeine 10 mg-guaifenesin 100 mg/5 5 ml PO Q6H PRN cough #75 mL 05/21/22 mL oral liquid (Guaifenesin AC) prednisone 20 mg tablet 60 mg (3 x 20 mg) PO DAILY 5 days 05/21/22 #15 tabs acetaminophen 500 mg tablet 500 mg PO Q6H PRN fever or pain 06/11/22 (Tylenol Extra Strength) #14 tabs hydrocodone 5 mg-acetaminophen 325 1 tab PO Q8H PRN pain, severe 3 06/11/22 mg tablet days #4 tabs lidocaine 5 % topical patch 1 patch topical DAILY PRN pain #30 06/11/22 (Lidoderm) ea oseltamivir 75 mg capsule (Tamiflu) 75 mg PO Q12H 5 days #10 caps 06/11/22 Allergies Allergy/AdvReac Type Severity Reaction Status Date / Time No Known Allergies Allergy Verified 05/16/24 16:00 Review of Systems Review of Systems: Constitutional : No Weight loss, No Fever, No Chills, No Night Sweats, No Fatigue, No Malaise ENT/Mouth : No Hearing loss, No Ear Pain, No Nasal Congestion, No Sinus Pain, No Hoarseness, No sore throat, No Rhinorrhea, No Swallowing Difficulty Eyes: No Eye Pain, No Swelling, No Redness, No Foreign Body, No Discharge, No Vision Changes Cardiovascular : No Chest Pain, No SOB, No Dyspnea on Exertion, No Orthopnea, No Edema, No Palpitations Respiratory : No Cough, No Sputum, No Wheezing, No Smoke Exposure, No Dyspnea Gastrointestinal : No Nausea, No Vomiting, No Diarrhea, No Constipation, No abdominal Pain, No Hematochezia, No Melena Genitourinary : no irregular bleeding, No Dysuria, No Urinary Frequency, No Hematuria, No Urinary Incontinence, No Urgency, No Flank Pain, No Urinary Flow Changes, No Hesitancy Musculoskeletal : No joint pain, No Myalgias, No Joint Swelling Skin : Complaining of a skin flap/laceration to the dorsum of the right hand Neuro : No Weakness, No Numbness, No Paresthesias, No Loss of Consciousness, No Dizziness, No Headache Psych : No Anxiety/Panic, No Depression, No SI/HI/AH/VH, No Social Issues, Heme/Lymph: No Bruising, No Bleeding,No Lymphadenopathy Endocrine : No Polyuria, No Polydipsia, No Temperature Intolerance [facility] Past Medical History Medical History Depression Anxiety Asthma Surgical History No history of previous surgery Family History Family History Maternal Aunt Breast CA Social History Social History Alcohol intake: current Alcohol intake frequency: holidays/special occasions only Cigarettes Per Day: 6 Advance Directives: No Advance Directives Information Provided: No Gender identity: Female Physical Exam ED Vital Signs: Vital Signs - 24 hr 05/16/24 15:59 05/16/24 18:39 05/16/24 20:37 Temperature 97.3 F 97.6 F 98.2 F Pulse Rate 89 86 71 Respiratory Rate 20 18 18 Blood Pressure 129/73 124/73 113/64 Pulse Oximetry 96 97 98 Oxygen Delivery Method Room Air Room Air Room Air 05/16/24 20:39 Temperature 98.2 F Pulse Rate 71 Respiratory Rate 18 Blood Pressure 113/64 Pulse Oximetry 98 Oxygen Delivery Method Room Air BMI result Body Mass Index 26.0 Const Other: Appearance: Alert. Oriented X3. No acute distress. Eyes: Pupils equal, round and reactive to light. ENT: Pharynx normal. Neck: Normal inspection. Neck supple. No lymph nodes noted. No crepitus CVS: Normal heart rate and rhythm. Pulses normal. Normal S1 and S2 Respiratory: No respiratory distress. Breath sounds normal. No Wheezing. No rales Abdomen: Soft and nontender. No rigidity. No distention. Skin: Skin warm and dry. Normal skin color. Normal skin turgor. See extremities below Extremities: No lower extremity edema. No Lacerations. No Rash. On the dorsum of the right hand above the distal end of the 2nd metacarpal, there is a skin flap, approximately 1.5 cm Neuro: Oriented X 3. No motor deficit. No sensory deficit. Moving all extremities. No slurred speech. CN 2 through 12 grossly intact Psych: calm, cooperative, normal affect Course Course Course Narrative: RME: 34-year-old female presents to ED for right hand laceration. Glass shattered on right index finger knuckle area. Patient states glasses and hand. Unknown last Tdap. X-ray ordered Medications Administered Discontinued Medications Generic Name Dose Route Start Last Admin Trade Name Freq PRN Reason Stop Dose Admin Diphtheria/Tetanus/Acell Pertussis 0.5 ml 05/16/24 16:03 05/16/24 19:32 Diphth,Pertus(Acell),Tet Adult 0.5 Ml Syringe IM 05/16/24 16:04 0.5 ml .ONCE ONE Administration Procedures Laceration Laceration 1: Site: hand Side (If applicable): right Size (cm): 1.5 Description: flap and irregular Depth: simple, single layer Local Anesthetic: lidocaine 1% Amount of anesthesia used (mL): 2 Pre-repair: wound explored and irrigated extensively Skin layer closed with: nylon Size (cm): 5-0 Number of sutures: 4 Technique: simple, interrupted Medical Decision Making Medical Decision Making MDM Narrative: The skin flap is deep enough that will need stitches. -patient tolerated well the procedure, lidocaine infiltrated. For stitches applied -patient was given a Tdap booster Discharge Plan Discharge Clinical Impression: Laceration of skin of hand Patient Disposition: Home, Self-Care Instructions: Laceration (ED) Additional Instructions: Your stitches need to be removed in 7-10 days. If you see any signs of infection such as redness, pus drainage, fever, please return to the emergency room. Please follow-up with your primary care physician tomorrow. If you have any worsening or new symptoms, please return to the emergency room or call 911 Prescriptions: No Action ferrous sulfate 325 mg (65 mg iron) tablet 325 mg PO Q OTHER DAY Qty: 30 1RF Rx Instructions: Take iron tab every other day (--). codeine-guaifenesin [Guaifenesin AC] 10-100 mg/5 mL liquid 5 ml PO Q6H PRN (Reason: cough) Qty: 75 0RF Rx Instructions: Narcotic, may cause drowsiness so no driving for 6 hours after taking albuterol sulfate 2.5 mg /3 mL (0.083 %) solution for nebulization 2.5 mg inhalation Q4-6H PRN (Reason: shortness of breath or wheezing) Qty: 75 0RF prednisone 20 mg tablet 60 mg PO DAILY 5 Days Qty: 15 0RF acetaminophen [Tylenol Extra Strength] 500 mg tablet 500 mg PO Q6H PRN (Reason: fever or pain) Qty: 14 0RF lidocaine [Lidoderm] 5 % adhesive patch,medicated 1 patch topical DAILY MDD remove after 12 hours PRN (Reason: pain) Qty: 30 0RF Rx Instructions: leave on most painful area for up to 12 hrs oseltamivir [Tamiflu] 75 mg capsule 75 mg PO Q12H 5 Days Qty: 10 0RF hydrocodone-acetaminophen 5-325 mg tablet 1 tab PO Q8H PRN (Reason: pain, severe) 3 Days Qty: 4 0RF Rx Instructions: Partial Fill upon patient request. ibuprofen 600 mg tablet 600 mg PO TID PRN (Reason: menorrhagia) 10 Days Qty: 30 0RF paroxetine HCl [Paxil] 10 mg tablet 10 mg PO DAILY zolpidem [Ambien] 10 mg tablet 10 mg PO BEDTIME PRN lorazepam 2 mg/mL concentrate 0.25 mg PO BID PRN L norgest/e.estradiol-e.estrad [Seasonique] 0.15 mg-30 mcg (84)/10 mcg (7) tablets,dose pack,3 month 1 tab PO DAILY 84 Days Qty: 84 3RF Interventions: ED Discharge Assessment Last Done: 05/16/24 20:39 Discharge Date/Time: 05/16/24 20:39 Print Language: Armenian
[2024-05-16 18:39] VITALS: BP 124/73; PULSE 86; RESP 18; TEMP 36.4; O2SAT 97
[2024-05-16] MEDS: Diphth,Pertus(ACell),Tet Adult 0.5 ML SYRINGE IM (19:32)
[2024-05-16 20:37] VITALS: BP 113/64; PULSE 71; RESP 18; TEMP 36.8; O2SAT 98
[2024-05-16 20:39] VITALS: BP 113/64; PULSE 71; RESP 18; TEMP 36.8; O2SAT 98
== END 2024-05-16 20:39 | disposition home or self-care (01) ==
PROVIDERS: Emergency Provider Emergency Medicine; PCP Internal Medicine
DX: S61.411A Laceration without foreign body of right hand, initial encounter (principal); W25.XXXA Contact with sharp glass, initial encounter; Y93.G1 Activity, food preparation and clean up; Y92.000 Kitchen of unspecified non-institutional (private) residence as the place of occurrence of the external cause; Y99.9 Unspecified external cause status; Z23 Encounter for immunization
CPT/HCPCS: 12001; 73110; 73130; 90471; 90715; 99283; 99284

== ENCOUNTER 2024-05-24 14:38 | Emergency (ER) | payer OTHER, SELFPAY ==
[2024-05-24 15:13] VITALS: BP 123/77; PULSE 92; RESP 18; TEMP 36.2; O2SAT 96; BMI 26.0
--- NOTE | 2024-05-24 15:21 | ED_ITS ---
HPI - General Adult General Chief complaint: General Medical Stated complaint: remove sticthes Time Seen by Provider: 05/24/24 15:15 Source: patient Mode of arrival: ambulatory Limitations: no limitations History of Present Illness ED Provider: Haresh HPI narrative: Patient is a 34-year-old female presenting for removal of sutures from right hand. She had sutures placed here on 05/16. Denies any complications, discharge/drainage or new symptoms. MD complaint: suture removal Related Data Home Medications ?Medication ?Instructions ?Recorded ?Confirmed lorazepam 2 mg/mL oral concentrate 0.25 mg PO BID PRN 08/22/20 08/22/20 paroxetine HCl 10 mg tablet (Paxil) 10 mg PO DAILY 08/22/20 08/22/20 zolpidem 10 mg tablet (Ambien) 10 mg PO BEDTIME PRN 08/22/20 08/22/20 Previous Rx's ?Medication ?Instructions ?Recorded ibuprofen 600 mg tablet 600 mg PO TID PRN menorrhagia 10 08/15/20 days #30 tabs ferrous sulfate 325 mg (65 mg 325 mg PO Q OTHER DAY #30 tabs 08/17/20 iron) tablet L norgest/E estradiol-E estrad 1 tab PO DAILY 84 days #84 ea 11/26/20 0.15 mg-30 mcg (84)/10 mcg(7) tabs,3mos (Seasonique) albuterol sulfate 2.5 mg/3 mL 2.5 mg (3 mL) inhalation Q4-6H PRN 05/21/22 (0.083 %) solution for nebulization shortness of breath or wheezing #75 mL codeine 10 mg-guaifenesin 100 mg/5 5 ml PO Q6H PRN cough #75 mL 05/21/22 mL oral liquid (Guaifenesin AC) prednisone 20 mg tablet 60 mg (3 x 20 mg) PO DAILY 5 days 05/21/22 #15 tabs acetaminophen 500 mg tablet 500 mg PO Q6H PRN fever or pain 06/11/22 (Tylenol Extra Strength) #14 tabs hydrocodone 5 mg-acetaminophen 325 1 tab PO Q8H PRN pain, severe 3 06/11/22 mg tablet days #4 tabs lidocaine 5 % topical patch 1 patch topical DAILY PRN pain #30 06/11/22 (Lidoderm) ea oseltamivir 75 mg capsule (Tamiflu) 75 mg PO Q12H 5 days #10 caps 06/11/22 Allergies Allergy/AdvReac Type Severity Reaction Status Date / Time No Known Allergies Allergy Verified 05/24/24 15:14 Review of Systems Review of Systems: as per hpi Yes all other systems are reviewed and are negative Constitutional: Constitutional: Reports as per HPI [facility] Past Medical History Medical History Depression Anxiety Asthma Surgical History No history of previous surgery Family History Family History Maternal Aunt Breast CA Social History Social History Alcohol intake: current Alcohol intake frequency: holidays/special occasions only Cigarettes Per Day: 6 Do you have a plan to hurt others: No Plan Gender identity: Female Physical Exam ED Vital Signs: Vital Signs - 24 hr 05/24/24 15:13 Temperature 97.1 F Pulse Rate 92 Respiratory Rate 18 Blood Pressure 123/77 Pulse Oximetry 96 Oxygen Delivery Method Room Air BMI result Body Mass Index 26.0 Vital signs have been reviewed and appear to be correct. Blood pressure normal. Heart rate normal. Respiratory rate normal. Temperature normal. Oxygen saturation normal. Const General: cooperative, healthy appearing and no acute distress Orientation/consciousness: oriented to person, oriented to place, oriented to time and patient oriented x3 Limitations: no limitations [facility] Head: Yes normocephalic and Yes atraumatic Ears: external ears normal General nose exam: Normal external nose present Face and sinus: Yes face symmetric Mouth: oropharynx normal and moist mucous membranes Throat: Yes uvula midline Eyes Pupils: Equal, round and reactive pupils present Neck Neck: Yes normal visual inspection and Yes supple Resp Effort & Inspection: normal respiratory effort and able to speak in complete sentences Auscultation: clear to auscultation bilaterally Cardio Rate: regular rate Rhythm: regular rhythm Heart sounds: S1 normal heart sound present and S2 normal heart sound present Skin Other: well-healing wound over 2nd MCP joint with sutures in place General skin exam: elasticity normal and turgor normal Neuro General: oriented to person, oriented to place, oriented to time, patient oriented x3, moves all extremities, no focal motor deficits and CN's II-XI intact bilaterally Cranial nerves: Yes Equal, round and reactive pupils present Cognition (Neuro): normal cognition Extrem General: Yes full ROM, Yes no pedal edema and Yes no calf tenderness Psych Mental Status: mental status grossly normal Affect: normal affect Thought process: Normal thought process present Medical Decision Making Medical Decision Making [facility] Narrative: Patient is a 20-year old female with history of breast reduction presenting with complaint of pain and discharge from right nipple. On exam patient is awake, A+Ox3, VS WNL, afebrile, normal neurological exam without focal deficits, physical exam findings as above. Given reported symptoms and physical exam findings, initial differential includes suture removal, wound check, potential infection/cellulitis. Wound appears well healed without evidence of infection. #4 sutures removed. Wound care discussed. Return for new or worsening symptoms. Patient verbalized understanding of and agreement with plan. Differential Diagnosis Differential Diagnoses: The differential diagnosis associated with the presentation includes As per [facility] External Record Review External record reviewed: Inpatient record, Office record and Outpatient record Discharge Plan Discharge Clinical Impression: Visit for suture removal Patient Disposition: Home, Self-Care Instructions: Stitches Removal (ED) Additional Instructions: You were seen in the emergency department today for suture removal. Your wound appears to be healing well. Please keep the area surrounding the wound clean and dry andcover with Band-Aid until fully healed. Do not submerge in water until fully healed. Please continue to assess the wound daily. Keep the area out of direct sunlight for the next 6 months to help prevent scarring. If you develop fever, redness, swelling at the site of your laceration, or thick yellow drainage please come back to the ER for a wound check. Prescriptions: No Action ferrous sulfate 325 mg (65 mg iron) tablet 325 mg PO Q OTHER DAY Qty: 30 1RF Rx Instructions: Take iron tab every other day (-W-). codeine-guaifenesin [Guaifenesin AC] 10-100 mg/5 mL liquid 5 ml PO Q6H PRN (Reason: cough) Qty: 75 0RF Rx Instructions: Narcotic, may cause drowsiness so no driving for 6 hours after taking albuterol sulfate 2.5 mg /3 mL (0.083 %) solution for nebulization 2.5 mg inhalation Q4-6H PRN (Reason: shortness of breath or wheezing) Qty: 75 0RF prednisone 20 mg tablet 60 mg PO DAILY 5 Days Qty: 15 0RF acetaminophen [Tylenol Extra Strength] 500 mg tablet 500 mg PO Q6H PRN (Reason: fever or pain) Qty: 14 0RF lidocaine [Lidoderm] 5 % adhesive patch,medicated 1 patch topical DAILY MDD remove after 12 hours PRN (Reason: pain) Qty: 30 0RF Rx Instructions: leave on most painful area for up to 12 hrs oseltamivir [Tamiflu] 75 mg capsule 75 mg PO Q12H 5 Days Qty: 10 0RF hydrocodone-acetaminophen 5-325 mg tablet 1 tab PO Q8H PRN (Reason: pain, severe) 3 Days Qty: 4 0RF Rx Instructions: Partial Fill upon patient request. ibuprofen 600 mg tablet 600 mg PO TID PRN (Reason: menorrhagia) 10 Days Qty: 30 0RF paroxetine HCl [Paxil] 10 mg tablet 10 mg PO DAILY zolpidem [Ambien] 10 mg tablet 10 mg PO BEDTIME PRN lorazepam 2 mg/mL concentrate 0.25 mg PO BID PRN L norgest/e.estradiol-e.estrad [Seasonique] 0.15 mg-30 mcg (84)/10 mcg (7) tablets,dose pack,3 month 1 tab PO DAILY 84 Days Qty: 84 3RF Print Language: Kosovan
[2024-05-24 15:42] VITALS: BP 120/72; PULSE 93; RESP 18; TEMP 36.2; O2SAT 96
== END 2024-05-24 15:43 | disposition home or self-care (01) ==
LOC: HO.ED 15:30
PROVIDERS: Emergency Provider Emergency Medicine; PCP Internal Medicine
DX: Z53.21 Procedure and treatment not carried out due to patient leaving prior to being seen by health care provider (principal)
CPT/HCPCS: 99282

== ENCOUNTER 2024-10-18 14:00 | Outpatient (RCR) | payer OTHER, SELFPAY ==
--- NOTE | 2024-10-18 14:53 | MHC.PT.DC ---
[facility] [place] Office [place] Office [place] Office [address] [facility] [phone] F: [phone] F: [phone] F: [phone] F: [phone] Physical Therapy Discharge Report Diagnosis: L knee pain Date of Surgery: Date of Evaluation: 09/28/24 Date of Discharge: 10/18/24 Treatments to Date: 6 Cancellations to Date: No Shows to Date: Discharge Status: Achieved Goals Improved Function Independent with HEP Discharge Summary: Lola has been an active and motivated participant in her therapy in and out of the clinic she reports she has not been having knee pain for weeks, she has met all of her therapeutic goals, she I with her home program and is active in her gym. LEFI outcome measure improved from 40/80 to 3/80. Electronically signed by: Bill Antunez PT. Please sign and return to therapist. Thank you for your referral.
== END 2024-10-18 14:52 | disposition home or self-care (01) ==
LOC: HO.PT 14:00
PROVIDERS: PCP Physician Assistant; Visit Provider Internal Medicine
DX: M25.562 Pain in left knee (principal); G89.29 Other chronic pain
CPT/HCPCS: 97110; 97161; 97530